=== PATIENT | female | born 1970 ===

== ENCOUNTER 2017-01-10 19:21 | Emergency (ER) | payer MEDICAID ==
[2017-01-10 19:21] VITALS: BMI 27.2
--- NOTE | 2017-01-10 19:55 | C.PDOC ---
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 Patient notes that her sock got caught on a nail where she mechanically fell forward landing on her forehead. Patient denies no other trauma or injury, LOC, dizziness, nausea, vomiting, fever, chills, or any other complaints. - HPI Time Seen by Provider: 01/10/17 19:46 Chief Complaint (Nursing): Trauma History Per: Patient History/Exam Limitations: no limitations Onset/Duration Of Symptoms: Hrs Location Of Injury: Right: Hand, Anterior: Face Severity: Mild Additional History Per: Patient - Fall Fall:Prior To Injury: Tripped Past Medical History Reviewed: Historical Data, Nursing Documentation, Vital Signs Vital Signs: Last Vital Signs Temp 98.0 F 01/10/17 20:40 Pulse 54 L 01/10/17 20:40 Resp 18 01/10/17 20:40 BP 123/76 01/10/17 20:40 Pulse Ox 100 01/10/17 21:33 - Medical History PMH: Arthritis, Asthma, Back Problems, Bronchitis, CHF, Gall Bladder Disease Surgical History: Cholecystectomy, Endoscopy, (x2) - [facility] Procedures ASSISTANCE WITH RESPIRATORY VENTILATION, 24-96 HRS, CPAP (10/06/16) CLOSURE SKIN & SUBCUTANEOUS NEC (02/13/13) DRAINAGE OF R LOW LEG SUBCU/FASCIA, OPEN APPROACH (05/25/16) EXCISION OF R LOW LEG SUBCU/FASCIA, OPEN APPROACH (05/25/16) EXCISION OF RIGHT LOWER LEG SKIN, EXTERNAL APPROACH (05/25/16) EXCISION OF STOMACH, ENDO, DIAGN (10/06/16) EXCISION OR CORRECTION OF BUNIONETTE (07/18/14) FLUOROSCOPY OF LEFT HEART USING LOW OSMOLAR CONTRAST (10/06/16) FLUOROSCOPY OF MULT COR ART USING L OSM CONTRAST (10/06/16) FOOT JOINT STRUCT DIVIS (07/10/13) MEASURE OF CARDIAC SAMPL & PRESSURE, L HEART, PERC APPROACH (10/06/16) OTHER LOCAL DESTRUC SKIN (07/18/14) PARTIAL OSTECTOMY NEC (12/05/13) PERIPH NERVE DESTRUCTION (07/10/13) REPAIR R LOW LEG SUBCU/FASCIA, OPEN APPROACH (05/25/16) REPLACE R LOW LEG SKIN W NONAUT SUB, PART THICK, MATE FOURTH (05/25/16) TETANUS TOXOID ADMINIST (01/18/15) Family History: States: Unknown Family Hx - Social History Hx Tobacco Use: No Hx Alcohol Use: No Hx Substance Use: No - Immunization History Hx Tetanus Toxoid Vaccination: No Hx Influenza Vaccination: No Hx Pneumococcal Vaccination: No Review Of Systems Except As Marked, All Systems Reviewed And Found Negative. Constitutional: Negative for: Fever, Chills, Other (No trauma or injury) ENT: Positive for: Other (Hematoma to the head) Gastrointestinal: Negative for: Nausea, Vomiting Musculoskeletal: Positive for: Hand Pain (Right hand pain) Neurological: Negative for: Dizziness, Other (LOC) Physical Exam - Physical Exam Appears: Non-toxic, No Acute Distress Skin: Warm, Dry Head: Normacephalic, Other (2 cm hematoma to the forehead) Eye(s): bilateral: Normal Inspection, PERRL, EOMI Nose: Other (Swelling to the bridge of the nose) Oral Mucosa: Moist Neck: No Midline Cervical Tenderness, No Paracervical Tenderness, No Step Off Deformity, Supple Cardiovascular: Rhythm Regular, No Murmur Respiratory: Normal Breath Sounds, No Rales, No Rhonchi, No Wheezing Extremity: Normal ROM, Tenderness (Swelling and tenderness to the right 5th digit), Capillary Refill (<2 sec), Swelling Pulses: Left Radial: Normal, Right Radial: Normal Neurological/Psych: Oriented x3, Normal Speech, Normal Cognition, Normal Motor, Normal Sensation, No Other (No focal deficit) Gait: Steady ED Course And Treatment O2 Sat by Pulse Oximetry: 100 (RA) Pulse Ox Interpretation: Normal - CT Scan/US CT Head w/o contrast Other Rad Studies (CT/US): Interpreted By Me, Read By Radiologist CT/US Interpretation: EXAM: CT Head Without Intravenous Contrast. CLINICAL HISTORY: 46 years old, female; Injury or trauma; Fall; Initial encounter; Blunt trauma. (contusions or hematomas); Consciousness not specified. TECHNIQUE: Axial computed tomography images of the head/brain without intravenous contrast. This CT exam was performed using one or more of the following dose reduction techniques: automated exposure control, adjustment of the mA and/or kV according to patient size, and/or use of. iterative reconstruction technique. COMPARISON: No relevant prior studies available. FINDINGS: Brain: Unremarkable. No hemorrhage. No significant white matter disease. No edema. Ventricles: Unremarkable. No ventriculomegaly. Bones/joints: Unremarkable. No acute fracture. Soft tissues: Hematoma in the left anterior scalp. Sinuses: Unremarkable as visualized. No acute sinusitis. Mastoid air cells: Unremarkable as visualized. No mastoid effusion. IMPRESSION: No acute findings. CT Maxillofacial w/o contrast Other Rad Studies (CT/US): Interpreted By Me, Read By Radiologist CT/US Interpretation: EXAM: CT Maxillofacial Without Intravenous Contrast. CLINICAL HISTORY: 46 years old, female; Injury or trauma; Fall; Initial encounter; Blunt trauma. (contusions or hematomas); Forehead. TECHNIQUE: Axial computed tomography images of the face without intravenous contrast. This CT. exam was performed using one or more of the following dose reduction techniques: automated. exposure control, adjustment of the mA and/or kV according to patient size, and/or use of iterative. reconstruction technique. Coronal and sagittal reformatted images were created and reviewed. COMPARISON: No relevant prior studies available. FINDINGS: Bones/joints: No acute fracture. Soft tissues: Hematoma low left anterior scalp. Orbits: Unremarkable. Sinuses: Mucosal thickening right maxillary sinus. No air-fluid levels. IMPRESSION: Hematoma low left anterior scalp Medical Decision Making Medical Decision Making: r/o fx, intracranial bleed Plans: -CT Head without contrast -CT Maxillofacial Without Contrast -X-Ray of the right hand -Reassess and disposition Patient is resting comfortably, and is in no acute distress. Patient was instructed to follow up with PMD in 1-2 days for further evaluation. Disposition - Disposition Referrals: [facility] [Outside] [facility] [Outside] Dusty Curtis MD [Staff Provider] - Disposition: HOME/ ROUTINE Disposition Time: 08:00 Condition: STABLE Additional Instructions: please follow up with your doctor/clinic and specialist. return to er with worsening symptoms or concerns Prescriptions: Naproxen [Naprosyn] 500 mg PO BID PRN #14 tablet PRN Reason: Pain, Mild (1-3) Instructions: Head Injury (ED), Hand Sprain (ED) - Clinical Impression Clinical Impression: Head injury, Hand injury - Scribe Statement The provider has reviewed the documentation as recorded by the Scribe Morena kirkland All medical record entries made by the Scribe were at my direction and personally dictated by me. I have reviewed the chart and agree that the record accurately reflects my personal performance of the history, physical exam, medical decision making, and the department course for this patient. I have also personally directed, reviewed, and agree with the discharge instructions and disposition.
[2017-01-10 20:42] VITALS: BP 123/76; PULSE 54; RESP 18; TEMP 98
[2017-01-10 21:33] VITALS: O2SAT 100
--- NOTE | 2017-01-11 09:11 | CT ---
PROCEDURE: CT HEAD WITHOUT CONTRAST. HISTORY: trauma COMPARISON: None available. TECHNIQUE: Axial computed tomography images were obtained through the head/brain without intravenous contrast. Radiation dose: Total exam DLP = 841.89 mGy-cm. This CT exam was performed using one or more of the following dose reduction techniques: Automated exposure control, adjustment of the mA and/or kV according to patient size, and/or use of iterative reconstruction technique. FINDINGS: HEMORRHAGE: No intracranial hemorrhage. BRAIN: No mass effect or edema. No atrophy or chronic microvascular ischemic changes. VENTRICLES: Unremarkable. No hydrocephalus. CALVARIUM: Unremarkable. PARANASAL SINUSES: Unremarkable as visualized. No significant inflammatory changes. MASTOID AIR CELLS: Unremarkable as visualized. No inflammatory changes. OTHER FINDINGS: None. IMPRESSION: No intracranial mass, hemorrhage or evidence of acute infarct. Preliminary interpretation of this examination was reported by [facility] at 8:32 p.m. on 01/10/2017. There is concurrence of this report with the preliminary interpretation.
--- NOTE | 2017-01-11 09:14 | CT ---
PROCEDURE: CT MAXILLOFACIAL BONES WITHOUT CONTRAST HISTORY: trauma COMPARISON: None TECHNIQUE: Contiguous axial CT images of the maxillofacial bones were obtained. Coronal and sagittal reformats were generated. Radiation dose: Total exam DLP = 774.65 mGy-cm. This CT exam was performed using one or more of the following dose reduction techniques: Automated exposure control, adjustment of the mA and/or kV according to patient size, and/or use of iterative reconstruction technique. FINDINGS: NASAL BONES: Unremarkable. ORBITS: Unremarkable. PARANASAL SINUSES/ MASTOIDS: Chronic right maxillary sinusitis. MAXILLA: Unremarkable. MANDIBLE/ TEMPOROMANDIBULAR JOINTS: Unremarkable. SKULL BASE: Unremarkable. TEMPORAL BONES: Middle ears and mastoid grossly unremarkable. OTHER FINDINGS: Left parasagittal anterior scalp hematoma. IMPRESSION: No evidence of facial fracture. Left anterior parasagittal scalp hematoma. Chronic right maxillary sinusitis. Preliminary interpretation of this examination was reported by [facility] at 8:32 p.m. on 01/10/2017. There is concurrence of this report with the preliminary interpretation.
--- NOTE | 2017-01-11 10:33 | RAD ---
PROCEDURE: Right Hand Radiographs. HISTORY: trauma COMPARISON: None. FINDINGS: BONES: Normal. No fracture. JOINTS: Normal. No osteoarthritic changes. SOFT TISSUES: Normal. OTHER FINDINGS: None. IMPRESSION: No evidence of acute fracture or dislocation.
== END 2017-01-10 20:50 | disposition home or self-care (01) ==
LOC: C.ER 19:21
DX: S00.83XA Contusion of other part of head, initial encounter (principal); S69.91XA Unspecified injury of right wrist, hand and finger(s), initial encounter; W18.30XA Fall on same level, unspecified, initial encounter

== ENCOUNTER 2017-04-09 18:13 | Emergency (ER) | payer MEDICAID ==
[2017-04-09 18:14] VITALS: BMI 27.2
[2017-04-09 18:20] VITALS: RESP 18
--- NOTE | 2017-04-09 19:21 | C.PDOC ---
History Of Present Illness 46 year old female presents to the ED with complaints of an occasional front headache since having a frontal contusion two months ago. She notes use of new glasses and feels it may be a cause of the headache. 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 Patient states headache is non-radiating and denies vision changes or neurological changes. Time Seen by Provider: 04/09/17 19:04 Chief Complaint (Nursing): Headache History Per: Patient History/Exam Limitations: no limitations Onset/Duration Of Symptoms: Intermittent Episodes (Occasional frontal headache for two months ) Current Symptoms Are (Timing): Better Preceeding Symptoms: None Associated Symptoms: denies: Photophobia, Blurred Vision, Nausea, Vomiting, Extremity Weakness Recent travel outside of the [place]: No Additional History Per: Prior Records ([place] [employer] OPERATOR ) Past Medical History Reviewed: Historical Data, Nursing Documentation, Vital Signs Vital Signs: Last Vital Signs Temp 98 F 04/09/17 19:26 Pulse 68 04/09/17 19:26 Resp 18 04/09/17 19:26 BP 121/70 04/09/17 19:26 Pulse Ox 99 04/09/17 19:26 - Medical History PMH: Arthritis, Asthma, Back Problems, Bronchitis, CHF, Gall Bladder Disease Surgical History: Cholecystectomy, Endoscopy, (x2) - [facility] Procedures ASSISTANCE WITH RESPIRATORY VENTILATION, 24-96 HRS, CPAP (10/06/16) CLOSURE SKIN & SUBCUTANEOUS NEC (02/13/13) DRAINAGE OF R LOW LEG SUBCU/FASCIA, OPEN APPROACH (05/25/16) EXCISION OF R LOW LEG SUBCU/FASCIA, OPEN APPROACH (05/25/16) EXCISION OF RIGHT LOWER LEG SKIN, EXTERNAL APPROACH (05/25/16) EXCISION OF STOMACH, ENDO, DIAGN (10/06/16) EXCISION OR CORRECTION OF BUNIONETTE (07/18/14) FLUOROSCOPY OF LEFT HEART USING LOW OSMOLAR CONTRAST (10/06/16) FLUOROSCOPY OF MULT COR ART USING L OSM CONTRAST (10/06/16) FOOT JOINT STRUCT DIVIS (07/10/13) MEASURE OF CARDIAC SAMPL & PRESSURE, L HEART, PERC APPROACH (10/06/16) OTHER LOCAL DESTRUC SKIN (07/18/14) PARTIAL OSTECTOMY NEC (12/05/13) PERIPH NERVE DESTRUCTION (07/10/13) REPAIR R LOW LEG SUBCU/FASCIA, OPEN APPROACH (05/25/16) REPLACE R LOW LEG SKIN W NONAUT SUB, PART THICK, [employer]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 Negative for: Weakness, Numbness, Dizziness Physical Exam - Physical Exam Appears: Non-toxic, No Acute Distress, Other (Patient appears anxious on exam and notes headache is now gone. ) Skin: Warm, Dry Head: Atraumatic Eye(s): bilateral: Normal Inspection, PERRL, EOMI Oral Mucosa: Moist Neck: Supple Chest: Symmetrical, No Deformity Cardiovascular: Rhythm Regular Respiratory: Normal Breath Sounds, No Rhonchi, No Wheezing Neurological/Psych: Oriented x3, Normal Speech, Normal Cognition, Normal Cranial Nerves, Normal Motor, Normal Sensation Gait: Steady ED Course And Treatment O2 Sat by Pulse Oximetry: 97 (room air ) Medical Decision Making Medical Decision Making: mild infrequent headaches, but not now. Fall with frontal headache 2 months ago, normal head CT takes extensive Percocet regimen for lower back pain Xanax prescribed for anxiety but rarely takes ? post-concussion syndrome, eyeglasses/vision issues, anxiety about head injuries no w/u indicated now as pt pain free unable to take NSAIDS for ? reason. no s/s of CHF now- h/o iatrogenic CHF Disposition Doctor Will See Patient In The: Office Counseled Patient/Family Regarding: Studies Performed, Diagnosis - Disposition Referrals: Topher Jaramillo MD [Staff Provider] - Sari Kapoor MD [Staff Provider] - Disposition: HOME/ ROUTINE Disposition Time: 19:21 Condition: GOOD Additional Instructions: follow-up with your outpatient psych and chronic pain specialists regarding your chronic headache issues. Instructions: General Headache (ED) Forms: [employer] - [employer] [place] (Macedonian) - Clinical Impression Clinical Impression: Headache - Scribe Statement The provider has reviewed the documentation as recorded by the Scribe Bette Mikey All medical record entries made by the Dee were at my direction and personally dictated by me. I have reviewed the chart and agree that the record accurately reflects my personal performance of the history, physical exam, medical decision making, and the department course for this patient. I have also personally directed, reviewed, and agree with the discharge instructions and disposition.
[2017-04-09 19:27] VITALS: BP 121/70; PULSE 68; TEMP 98
[2017-04-09 19:57] VITALS: O2SAT 97
== END 2017-04-09 19:27 | disposition home or self-care (01) ==
LOC: C.ER 18:13
DX: R51 Headache (principal)

== ENCOUNTER 2018-02-25 21:40 | Emergency (ER) | payer MEDICAID ==
[2018-02-25 21:40] VITALS: BMI 27.2
--- NOTE | 2018-02-25 22:02 | C.PDOC ---
History Of Present Illness patient presents with reproducible chest wall pain, sore throat.Pt very anxious , hyperventilating. Discomfort started 2 days ago. Speaking in complete sentences. No f/c/n/v. Also complaining of diffuse body aches Time Seen by Provider: 02/25/18 22:01 Chief Complaint (Nursing): Chest Pain History Per: Patient, Family History/Exam Limitations: no limitations Onset/Duration Of Symptoms: Days Current Symptoms Are (Timing): Still Present Context: Other Severity: Moderate Pain Scale Rating Of: 4 Quality: Dull, Aching Associated Symptoms: denies: Nausea, Dyspnea Exacerbating Factors: Turning, Movement, Deep Breathing Alleviating Factors: None Recent travel outside of the [place]: No Additional History Per: Family Past Medical History Reviewed: Historical Data, Nursing Documentation, Vital Signs Vital Signs: Last Vital Signs Temp 98.4 F 02/25/18 21:45 Pulse 71 02/25/18 21:45 Resp 26 H 02/25/18 21:45 BP 120/84 02/25/18 21:45 Pulse Ox 100 02/25/18 22:26 - Medical History PMH: Arthritis, Asthma, Back Problems, Bronchitis, CHF, Gall Bladder Disease Surgical History: Cholecystectomy, Endoscopy, (x2) - [facility] Procedures ASSISTANCE WITH RESPIRATORY VENTILATION, 24-96 HRS, CPAP (10/06/16) CLOSURE SKIN & SUBCUTANEOUS NEC (02/13/13) DRAINAGE OF R LOW LEG SUBCU/FASCIA, OPEN APPROACH (05/25/16) EXCISION OF R LOW LEG SUBCU/FASCIA, OPEN APPROACH (05/25/16) EXCISION OF RIGHT LOWER LEG SKIN, EXTERNAL APPROACH (05/25/16) EXCISION OF STOMACH, ENDO, DIAGN (10/06/16) EXCISION OR CORRECTION OF BUNIONETTE (07/18/14) FLUOROSCOPY OF LEFT HEART USING LOW OSMOLAR CONTRAST (10/06/16) FLUOROSCOPY OF MULT COR ART USING L OSM CONTRAST (10/06/16) FOOT JOINT STRUCT DIVIS (07/10/13) MEASURE OF CARDIAC SAMPL & PRESSURE, L HEART, PERC APPROACH (10/06/16) OTHER LOCAL DESTRUC SKIN (07/18/14) PARTIAL OSTECTOMY NEC (12/05/13) PERIPH NERVE DESTRUCTION (07/10/13) REPAIR R LOW LEG SUBCU/FASCIA, OPEN APPROACH (05/25/16) REPLACE R LOW LEG SKIN W NONAUT SUB, PART THICK, OPERATIONS SUPPORT PROFESSIONALS (05/25/16) TETANUS TOXOID ADMINIST (01/18/15) Family History: States: No Known Family Hx - Social History Hx Tobacco Use: No Hx Alcohol Use: No Hx Substance Use: No - Immunization History Hx Tetanus Toxoid Vaccination: No Hx Influenza Vaccination: No Hx Pneumococcal Vaccination: No Review Of Systems Constitutional: Negative for: Fever, Chills Eyes: Negative for: Vision Change ENT: Positive for: Throat Pain Cardiovascular: Positive for: Chest Pain. Negative for: Palpitations Respiratory: Negative for: Shortness of Breath Gastrointestinal: Negative for: Nausea, Vomiting, Abdominal Pain Genitourinary: Negative for: Dysuria Musculoskeletal: Negative for: Back Pain Skin: Negative for: Rash Neurological: Negative for: Weakness Psych: Positive for: Anxiety Physical Exam - Physical Exam Appears: Non-toxic, No Acute Distress Skin: Warm, Dry Head: Normacephalic Eye(s): bilateral: Normal Inspection Oral Mucosa: Moist Tongue: Normal Appearing Throat: No Erythema, No Exudate, No Drooling Neck: Supple Chest: Symmetrical, Tenderness (reproducible) Cardiovascular: Rhythm Regular Respiratory: No Rales, No Rhonchi, No Wheezing Gastrointestinal/Abdominal: Soft, No Tenderness, No Distention Back: Normal Inspection Extremity: Normal ROM Extremity: Bilateral: Atraumatic Pulses: Left Dorsalis Pedis: Normal, Right Dorsalis Pedis: Normal Neurological/Psych: Oriented x3, Normal Speech, Normal Cognition Gait: Steady ED Course And Treatment - Laboratory Results Result Diagrams: 02/25/18 22:21 02/25/18 22:21 ECG: Interpreted By Me, Viewed By Me ECG Rhythm: Sinus Rhythm (62), Nonspecific Changes O2 Sat by Pulse Oximetry: 100 Pulse Ox Interpretation: Normal Reevaluation Time: 23:31 Reassessment Condition: Improved Disposition Counseled Patient/Family Regarding: Studies Performed, Diagnosis, Need For Followup - Disposition Referrals: Shaik Aguilar MD [Staff Provider] - Disposition: HOME/ ROUTINE Disposition Time: 22:02 Condition: FAIR Instructions: Costochondritis (DC) Forms: [employer] (Norwegian) - Clinical Impression Clinical Impression: Costochondral chest pain Addendum Addendum: 02/25/18 23:40 pt is under the care of pain management. will follow up with them. On 02/05/18 had filled 120 percocets, and on 02/19 got another 20 perccet
[2018-02-25] MEDS ORDERED: Aspirin 325 mg EC Tablets PO STA (22:17)
[2018-02-25] MEDS ORDERED: Sodium Chloride 0.9% 1,000 ML IV ONE (22:17)
[2018-02-25] MEDS ORDERED: Sodium Chloride 0.9% 1,000 ML ONE (22:22)
[2018-02-25] MEDS ORDERED: Aspirin 325 mg EC Tablets PO ONE (22:23)
[2018-02-25 22:24] LABS: BASO % 0.3 % (0.0-2.0); EOS # 0.1 K/uL (0.0-0.7); EOS % 1.2 % (0.0-4.0); LYMPH # 1.7 K/uL (1.0-4.3); LYMPH % 20.2 % (20.0-40.0); MEAN CELL VOLUME 86.7 fL (81.0-99.0); MEAN CORPUSCULAR HEMOGLOBIN 28.7 pg (27.0-31.0); MEAN CORPUSCULAR HGB CONC 33.1 g/dL (33.0-37.0); MEAN PLATELET VOLUME 8.9 fL (7.2-11.7); MONO # 0.6 K/uL (0.0-0.8); MONO % 6.9 % (0.0-10.0); NEUT # 6.1 K/uL (1.8-7.0); NEUT % 71.4 % (50.0-75.0); RBC 3.84 Mil/uL (3.80-5.20)
[2018-02-25 22:25] LABS: WHITE BLOOD COUNT 8.6 K/uL (4.8-10.8)
[2018-02-25 22:44] LABS: ALB/GLOB RATIO 1.3 (1.0-2.1); ALBUMIN 3.7 g/dL (3.5-5.0); ALT/SGPT 23 U/L (9-52); AST/SGOT 22 U/L (14-36); BLOOD UREA NITROGEN 17 mg/dL (7-17); CALCIUM 8.4 mg/dl (8.6-10.4); GFR AFRICAN-AMERICAN > 60; GFR NON-AFRICAN AMERICAN > 60
[2018-02-25 23:23] LABS: HCG,QUALITATIVE URINE NEGATIVE (NEGATIVE); SQUAMOUS EPITHIAL 7 /hpf (0-5); URINE BILIRUBIN NEGATIVE (NEGATIVE); URINE BLOOD NEGATIVE (NEGATIVE); URINE CLARITY Hazy (Clear); URINE COLOR Yellow (YELLOW); URINE GLUCOSE (UA) NORMAL (Normal); URINE LEUKOCYTE ESTERASE NEG Leu/uL (Negative); URINE PROTEIN NEGATIVE (NEGATIVE)
[2018-02-25 23:45] VITALS: BP 122/78; PULSE 78; RESP 20; TEMP 98; O2SAT 98
--- NOTE | 2018-02-27 12:31 | CARD ---
APPROVED REPORT EKG Measurement Heart [id number] <Conclusion> Normal sinus rhythm Normal ECG
== END 2018-02-25 23:45 | disposition home or self-care (01) ==
LOC: C.ER 21:40
DX: R07.1 Chest pain on breathing (principal); J45.909 Unspecified asthma, uncomplicated
CPT/HCPCS: 80053; 81001; 84484; 84703; 85025; 85610; 85730; 93005; 96361; 96374; 99284; J1885; J7030

== ENCOUNTER 2018-09-13 12:37 | Emergency (ER) | payer OTHER, MEDICAID ==
[2018-09-13 12:37] VITALS: BMI 27.2
[2018-09-13 13:02] VITALS: BP 131/85; PULSE 58; RESP 18; TEMP 98.3; O2SAT 99
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
== END 2018-09-13 13:49 | disposition home or self-care (01) ==
LOC: C.ER 12:37
DX: M54.6 Pain in thoracic spine (principal); R07.9 Chest pain, unspecified; V89.2XXA Person injured in unspecified motor-vehicle accident, traffic, initial encounter
CPT/HCPCS: 71046; 96372; 99283; J1885